=== PATIENT | female | born 1970 | race Two or more races ===

== ENCOUNTER 2020-09-07 14:47 | Outpatient (CLI) | payer OTHER | END 2020-09-07 16:19 | disposition home or self-care (01) | LOC: OFIC 805 14:47 | PROVIDERS: ATTEND Otolaryngology Otology & Neurotology | DX: T16.2XXA Foreign body in left ear, initial encounter (principal); H92.02 Otalgia, left ear ==

== ENCOUNTER 2024-11-21 19:17 | Emergency (ER) | payer OTHER ==
[~2024-11-21] VITALS: Ht 149.9 cm; Wt 67.1 kg
[2024-11-21] MEDS ORDERED: ADULT LOW DOSE81 M1 PO (19:23)
[2024-11-21] MEDS ORDERED: WELLBUTRIN XL300 MG PO (19:23)
[2024-11-21] MEDS ORDERED: PROMETRIUM200 MG PO (19:24)
[2024-11-21] MEDS ORDERED: ZEPBOUND15 MG/0.5 (19:24)
[2024-11-21] MEDS ORDERED: KETOROLAC TROMETHAMINE 30 MG VIAL IV ONE (20:45)
[2024-11-21] MEDS ORDERED: 0.9 % SODIUM CHLORIDE 500 ML IV ONE (20:45)
[2024-11-21] MEDS ORDERED: FAMOTIDINE/PF 20 MG/2 ML VIAL IV ONE (20:45)
[2024-11-21] MEDS ORDERED: LACTOBACILLUS ACIDOPHILUS 1 CAP CAP PO ONE (20:45)
[2024-11-21 21:06] LABS: BASO % 0.3 % (0.1-1.2); EOS # 0.09 (0.04-0.54); EOS % 1.6 % (0.7-7.0); LYMPH # 1.72 (1.18-3.74); LYMPH % 29.8 % (19.3-53.1); MEAN PLATELET VOLUME 9.80 fl (9.4-12.4); MONO # 0.55 (0.24-0.82); MONO % 9.5 % (4.7-12.5); NEUT # 3.35 (1.56-6.13); NEUT % 57.9 % (34.0-71.1); RED CELL DISTRIBUTION WIDTH 12.2 % (11.6-14.4)
[2024-11-21 21:15] LABS: URINE APPEARANCE Clear; URINE BILIRRUBIN Negative (NEGATIVE); URINE BLOOD Negative; URINE COLOR Yellow; URINE GLUCOSE Negative (NEGATIVE); URINE KETONE Negative (NEGATIVE); URINE LEUKOCYTE Trace; URINE NITRATE Negative; URINE PROTEIN Negative (NEGATIVE); URINE UROBILINOGEN 0.2 E.U./dl
[2024-11-21 21:16] LABS: URINE BACTERIA 22.7 uL (0.0-1933); URINE EPITHELIAL CELLS 3.6 uL (0.0-38.8); URINE WBC 8.1 uL (0.0-23.2)
[2024-11-21 21:19] LABS: URINE CAST 0.29 uL (0.0-1.40); URINE RBC 1.9 uL (0.0-20.8)
[2024-11-21 21:30] LABS: ALT/SGPT 43.0 U/L (12-78); AST/SGOT 44.0 U/L (15-37); BILIRUBIN TOTAL 0.32 mg/dL (0.3-1.2); BUN CREA RATIO 10.0 (7.0-25.0); CREATININE SERUM 0.7 mg/dL (0.55-1.02); GFR 87.53; GLOBULINA 3.4 G/DL (2.4-3.5); GLUCOSE FASTING 99.0 mg/dL (65-100); OSMOLALITY SERUM 283.0 MOSM/KG (275-295)
== END 2024-11-22 00:27 | disposition home or self-care (01) ==
LOC: ER 19:17
PROVIDERS: Emergency Medicine
DX: K52.9 Noninfective gastroenteritis and colitis, unspecified (principal); I88.0 Nonspecific mesenteric lymphadenitis; K57.30 Diverticulosis of large intestine without perforation or abscess without bleeding; N28.1 Cyst of kidney, acquired